=== PATIENT | female | born 1980 | race Caucasian/White ===

== ENCOUNTER 2016-10-22 14:54 | Emergency (ER) | payer BC, OTHER ==
--- NOTE | 2016-10-22 17:19 | CT ---
Exam: CT head without contrast COMPARISON: None INDICATION: Head trauma 3 days ago, now with headache, difficulty concentrating and loss of bowel control x2. TECHNIQUE: CT examination of the head was obtained without contrast. FINDINGS: There is no acute intracranial hemorrhage. There is no abnormal intra or extra-axial fluid collection. There is no edema, mass effect or midline shift. Ventricles are normal in size. There is no depressed skull fracture. Visualized paranasal sinuses and mastoid air cells are well aerated. IMPRESSION: No acute intracranial abnormality. Report was uploaded to the EMR at 1715 hours 10/22/2016.
== END 2016-10-22 18:44 | disposition short-term general hospital (02) ==
LOC: ED 14:54
DX: S06.0X0A Concussion without loss of consciousness, initial encounter (principal); S09.90XA Unspecified injury of head, initial encounter; R15.9 Full incontinence of feces; W22.8XXA Striking against or struck by other objects, initial encounter; Y92.813 Airplane as the place of occurrence of the external cause